=== PATIENT | female | born 2000 | race African-American/Black ===

== ENCOUNTER 2019-01-05 19:37 | Emergency (ER) | payer OTHER ==
[2019-01-05 20:09] VITALS: TEMP 98.2
[2019-01-05] MEDS ORDERED: SODIUM CHLORIDE 0.9% 500 ML 500 ML IV STA (20:32)
--- NOTE | 2019-01-05 20:56 | ED ---
Female Urogenital HPI - General Chief complaint: Vaginal Bleeding Stated complaint: Vaginal Bleeding- Time Seen by Provider: 01/05/19 20:31 Source: patient Mode of arrival: ambulatory Limitations: no limitations - History of Present Illness Initial comments: This patient is a 18-year-old woman who presents to be evaluated for vaginal bleeding and lower abdominal cramping. The patient states that she states the cramping is been going on for number of days but she didn't really pay any attention to it until about 3 days ago when she started having some small amount of vaginal bleeding. She states that approximately one week ago she had learned she was by taking a home test. Last previous area and was November 22 and was normal. Patient describes the cramping as mild, intermittent, she indicates the bilateral lower pelvic area. She has not noted worsening or relieving factors. MD Complaint: vaginal bleeding, pelvic pain Onset/Timin -: days(s) Location: LLQ, RLQ Radiation: non-radiating Severity: mild Quality: cramping Consistency: intermittent Improves with: none Worsens with: none Last Menstrual Period: 11/22/18 Patient : Yes Associated Symptoms: vaginal bleeding, abdominal pain - Related Data Previous Rx's Medication Instructions Recorded Amoxicillin 500 mg PO Q8H #21 capsule 01/06/19 Allergies Allergy/AdvReac Type Severity Reaction Status Date / Time No Known Allergies Allergy Verified 01/05/19 20:43 Review of Systems ROS Statement: Those systems with pertinent positive or pertinent negative responses have been documented in the HPI. ROS Other: All systems not noted in ROS Statement are negative. Constitutional: Denies: fever, chills Respiratory: Denies: cough, dyspnea Cardiovascular: Denies: chest pain, palpitations, edema Gastrointestinal: Reports: as per HPI, abdominal pain. Denies: nausea, vomiting, diarrhea, constipation Genitourinary: Reports: discharge (Mall amount bleeding). Denies: urgency, dysuria, frequency, hematuria Musculoskeletal: Denies: back pain Skin: Denies: rash Neurological: Denies: headache Hematological/Lymphatic: Denies: easy bleeding Past Medical History Past Medical History: No Reported History History of Any Multi-Drug Resistant Organisms: None Reported Past Surgical History: No Surgical Hx Reported Past Psychological History: No Psychological Hx Reported Smoking Status: Never smoker Past Alcohol Use History: None Reported Past Drug Use History: None Reported General Exam Limitations: no limitations General appearance: alert, in no apparent distress Head exam: Present: atraumatic, normocephalic Eye exam: Present: normal appearance. Absent: scleral icterus, conjunctival injection ENT exam: Present: normal oropharynx Respiratory exam: Present: normal lung sounds bilaterally. Absent: respiratory distress, wheezes, rales, rhonchi, stridor Cardiovascular Exam: Present: regular rate, normal rhythm, normal heart sounds. Absent: systolic murmur, diastolic murmur, rubs, gallop GI/Abdominal exam: Present: soft, normal bowel sounds. Absent: distended, tenderness, guarding, rebound, rigid, mass External exam: Present: normal external exam, other (RN Diana present) Speculum exam: Present: normal speculum exam, vaginal bleeding. Absent: erythema, vaginal discharge, cervical discharge, foreign body, tissue, laceration By manual exam: Present: normal by manual exam, uterine enlargement. Absent: cervical motion tenderness, adnexal tenderness, adnexal mass, uterine tenderness Extremities exam: Present: normal inspection, normal capillary refill. Absent: pedal edema, calf tenderness Back exam: Present: normal inspection. Absent: CVA tenderness (R), CVA tenderness (L) Neurological exam: Present: alert Skin exam: Present: warm, dry, intact, normal color. Absent: rash Course Vital Signs 01/05/19 20:05 Temperature 98.2 F Pulse Rate 105 H Respiratory 18 Rate Blood Pressure 136/85 O2 Sat by Pulse 100 Oximetry Medical Decision Making - Lab Data Result diagrams: 01/05/19 20:50 01/05/19 20:50 Lab Results 01/05/19 01/05/19 01/05/19 Range/Units 20:50 20:50 20:50 WBC 8.5 (4.0-11.0) k/uL RBC 5.22 (3.80-5.40) m/uL Hgb 14.4 (11.4-16.0) gm/dL Hct 45.5 (34.0-46.0) % MCV 87.1 (80.0-100.0) fL MCH 27.5 (25.0-35.0) pg MCHC 31.6 (31.0-37.0) g/dL RDW 13.5 (11.5-15.5) % Plt Count 297 (150-450) k/uL Neutrophils % 65 % Lymphocytes % 27 % Monocytes % 6 % Eosinophils % 1 % Basophils % 1 % Neutrophils # 5.5 (1.3-7.7) k/uL Lymphocytes # 2.3 (1.0-4.8) k/uL Monocytes # 0.5 (0-1.0) k/uL Eosinophils # 0.1 (0-0.7) k/uL Basophils # 0.1 (0-0.2) k/uL Sodium 141 (137-145) mmol/L Potassium 3.6 (3.5-5.1) mmol/L Chloride 102 (98-107) mmol/L Carbon Dioxide 24 (22-30) mmol/L Anion Gap 15 mmol/L BUN 10 (7-17) mg/dL Creatinine 0.67 (0.52-1.04) mg/dL Est GFR (CKD-EPI)AfAm >90 (>60 ml/min/1.73 sqM) Est GFR (CKD-EPI)NonAf >90 (>60 ml/min/1.73 sqM) Glucose 77 (74-99) mg/dL Calcium 10.1 (8.4-10.2) mg/dL HCG, Quant 2973.6 mIU/mL Urine Color Urine Appearance (Clear) Urine pH (5.0-8.0) Ur Specific [place] (1.001-1.035) Urine Protein (Negative) Urine Glucose (UA) (Negative) Urine Ketones (Negative) Urine Blood (Negative) Urine Nitrite (Negative) Urine Bilirubin (Negative) Urine Urobilinogen (<2.0) mg/dL Ur Leukocyte Esterase (Negative) Urine RBC (0-5) /hpf Urine WBC (0-5) /hpf Ur Squamous Epith Cells (0-4) /hpf Urine Bacteria (None) /hpf Urine Mucus (None) /hpf Trichomonas Ag (Rapid) (Negative) Blood Type A Positive Blood Type Recheck [facility] ONLY 01/05/19 01/05/19 Range/Units 22:05 23:00 WBC (4.0-11.0) k/uL RBC (3.80-5.40) m/uL Hgb (11.4-16.0) gm/dL Hct (34.0-46.0) % MCV (80.0-100.0) fL MCH (25.0-35.0) pg MCHC (31.0-37.0) g/dL RDW (11.5-15.5) % Plt Count (150-450) k/uL Neutrophils % % Lymphocytes % % Monocytes % % Eosinophils % % Basophils % % Neutrophils # (1.3-7.7) k/uL Lymphocytes # (1.0-4.8) k/uL Monocytes # (0-1.0) k/uL Eosinophils # (0-0.7) k/uL Basophils # (0-0.2) k/uL Sodium (137-145) mmol/L Potassium (3.5-5.1) mmol/L Chloride (98-107) mmol/L Carbon Dioxide (22-30) mmol/L Anion Gap mmol/L BUN (7-17) mg/dL Creatinine (0.52-1.04) mg/dL Est GFR (CKD-EPI)AfAm (>60 ml/min/1.73 sqM) Est GFR (CKD-EPI)NonAf (>60 ml/min/1.73 sqM) Glucose (74-99) mg/dL Calcium (8.4-10.2) mg/dL HCG, Quant mIU/mL Urine Color Yellow Urine Appearance Clear (Clear) Urine pH 6.5 (5.0-8.0) Ur Specific [place] 1.025 (1.001-1.035) Urine Protein 1+ H (Negative) Urine Glucose (UA) Negative (Negative) Urine Ketones Negative (Negative) Urine Blood Moderate H (Negative) Urine Nitrite Negative (Negative) Urine Bilirubin Negative (Negative) Urine Urobilinogen 3.0 (<2.0) mg/dL Ur Leukocyte Esterase Small H (Negative) Urine RBC 65 H (0-5) /hpf Urine WBC 19 H (0-5) /hpf Ur Squamous Epith Cells 5 H (0-4) /hpf Urine Bacteria Rare H (None) /hpf Urine Mucus Many H (None) /hpf Trichomonas Ag (Rapid) Negative (Negative) Blood Type Blood Type Recheck Disposition Clinical Impression: Threatened Disposition: HOME SELF-CARE Condition: Good Instructions (If sedation given, give patient instructions): Threatened Miscarriage (ED) Prescriptions: Amoxicillin 500 mg PO Q8H #21 capsule Is patient prescribed a controlled substance at d/c from ED?: No Referrals: Candido Carmona MD [Primary Care Provider] - 1-2 days Blossom Tinsley MD [STAFF PHYSICIAN] - 1-2 days
[2019-01-05 21:26] LABS: Basophils # (A) 0.1 k/uL (0-0.2); Basophils % (A) 1 %; Eosinophils # (A) 0.1 k/uL (0-0.7); Eosinophils % (A) 1 %; HCT 45.5 % (34.0-46.0); HGB 14.4 gm/dL (11.4-16.0); Lymphocytes # (A) 2.3 k/uL (1.0-4.8); Lymphocytes % (A) 27 %; MCH 27.5 pg (25.0-35.0); MCHC 31.6 g/dL (31.0-37.0); MCV 87.1 fL (80.0-100.0); Mean Platelet Volume 7.6; Monocytes # (A) 0.5 k/uL (0-1.0); Monocytes % (A) 6 %; Neutrophils # (A) 5.5 k/uL (1.3-7.7); Neutrophils % (A) 65 %; Platelet Count 297 k/uL (150-450); RBC 5.22 m/uL (3.80-5.40); RDW 13.5 % (11.5-15.5); WBC 8.5 k/uL (4.0-11.0)
[2019-01-05 21:36] LABS: African American GFR (CKD) >90 (>60 ml/min/1.73 sqM); Anion Gap 15 mmol/L; Blood Urea Nitrogen 10 mg/dL (7-17); Calcium 10.1 mg/dL (8.4-10.2); Carbon Dioxide 24 mmol/L (22-30); Chloride 102 mmol/L (98-107); Glucose 77 mg/dL (74-99); Potassium 3.6 mmol/L (3.5-5.1); Sodium 141 mmol/L (137-145)
[2019-01-05 21:52] LABS: HCG,Quantitative Serum 2973.6 mIU/mL
[2019-01-05 22:37] LABS: Appearance,Urine Clear (Clear); Bacteria,Urine Rare /hpf; Bilirubin,Urine Negative (Negative); Blood,Urine Moderate (Negative); Color,Urine Yellow; Glucose,Urine (UA) Negative (Negative); Ketones,Urine Negative (Negative); Leukocyte Esterase,Urine Small (Negative); Mucus,Urine Many /hpf; Nitrite,Urine Negative (Negative); PH, Urine 6.5 (5.0-8.0); Protein,Urine 1+ (Negative); RBC,Urine 65 /hpf (0-5); Specific Gravity,Urine 1.025 (1.001-1.035); Squamous Epithelial Cell,Urine 5 /hpf (0-4); WBC,Urine 19 /hpf (0-5)
--- NOTE | 2019-01-06 00:14 | US ---
EXAM: US First Trimester, Transabdominal US , Transvaginal CLINICAL HISTORY: ITS.REASON US Reason: Pain, bleeding TECHNIQUE: Real-time transabdominal and transvaginal obstetrical ultrasound of the maternal pelvis and a first trimester with image documentation. Transvaginal imaging was used for better evaluation of the fetus and adnexa. COMPARISON: No relevant prior studies available. FINDINGS: Gestation: Intrauterine gestational sac, relatively lower in the uterus, with pole measuring 6 weeks by crown-rump length. cardiac activity not visualized. Uterus/cervix: Uterus: 6.7 x 4.9 x 4.1 cm. Possible minimal fluid in cervix area. Ovaries: Right Ovary: 3.6 x 2.4 x 1.7 cm. Left Ovary: 3.9 x 2.7 x 2.6 cm. Free fluid: Trace pelvic free fluid. IMPRESSION: 1. Single intrauterine measuring 6 weeks. cardiac activity not visualized. Correlate with serial beta hCG/followup ultrasound as clinically indicated. 2. Trace pelvic free fluid.
[2019-01-06] MEDS ORDERED: Rhogam IMMUNE GLOBULIN 1,500 UNIT/1 ML IM ONE (00:29)
[2019-01-06 00:48] VITALS: BP 139/86; PULSE 99; RESP 16
== END 2019-01-06 01:10 | disposition home or self-care (01) ==
LOC: EC 19:37
DX: O20.0 Threatened abortion (principal); O99.89 Other specified diseases and conditions complicating pregnancy, childbirth and the puerperium; N85.2 Hypertrophy of uterus; Z3A.01 Less than 8 weeks gestation of pregnancy; Z53.8 Procedure and treatment not carried out for other reasons
CPT/HCPCS: 36415; 76801; 76817; 80048; 81001; 84702; 85025; 86900; 86901; 87808; 96360; 99284

== ENCOUNTER 2019-01-08 11:04 | Emergency (ER) | payer OTHER ==
[2019-01-08 11:11] VITALS: BP 130/89; PULSE 103; RESP 20; TEMP 98.6
--- NOTE | 2019-01-08 11:50 | ED ---
Female Urogenital HPI - General Chief complaint: Vaginal Bleeding Stated complaint: recheck 6wks preg, bleeding Time Seen by Provider: 01/08/19 11:13 Source: patient, RN notes reviewed Mode of arrival: ambulatory Limitations: no limitations - History of Present Illness Initial comments: Patient is a 18-year-old female currently 6 weeks with an LMP of 11/22/2018 who presents to the emergency department for vaginal bleeding. States this has been ongoing for about a week. States she has had cramping as well. States she thinks she is miscarrying. States she did pass some clots today as well as tissue. Denies any significant abdominal pain. States she did have an ultrasound that showed an intrauterine without a heart ra te.Patient has no other complaints at this time including shortness of breath, chest pain, abdominal pain, nausea or vomiting, headache, or visual changes. Last Menstrual Period: 11/22/18 - Related Data Home Medications Medication Instructions Recorded Confirmed No Known Home Medications 01/08/19 01/08/19 Allergies Allergy/AdvReac Type Severity Reaction Status Date / Time No Known Allergies Allergy Verified 01/08/19 11:27 Review of Systems ROS Statement: Those systems with pertinent positive or pertinent negative responses have been documented in the HPI. ROS Other: All systems not noted in ROS Statement are negative. Past Medical History Past Medical History: No Reported History History of Any Multi-Drug Resistant Organisms: None Reported Past Surgical History: No Surgical Hx Reported Past Psychological History: No Psychological Hx Reported Smoking Status: Never smoker Past Alcohol Use History: None Reported Past Drug Use History: None Reported General Exam Limitations: no limitations General appearance: alert, in no apparent distress Head exam: Present: atraumatic, normocephalic, normal inspection Eye exam: Present: normal appearance, PERRL, EOMI. Absent: scleral icterus, conjunctival injection, periorbital swelling ENT exam: Present: normal exam, mucous membranes moist Neck exam: Present: normal inspection, full ROM. Absent: tenderness, meningismus, lymphadenopathy Respiratory exam: Present: normal lung sounds bilaterally. Absent: respiratory distress, wheezes, rales, rhonchi, stridor Cardiovascular Exam: Present: regular rate, normal rhythm, normal heart sounds. Absent: systolic murmur, diastolic murmur, rubs, gallop, clicks GI/Abdominal exam: Present: soft, normal bowel sounds. Absent: distended, tenderness, guarding, rebound, rigid External exam: Present: normal external exam. Absent: erythema, swelling, lesions, lacerations, ecchymosis Speculum exam: Present: vaginal bleeding. Absent: normal speculum exam, erythema, vaginal discharge, cervical discharge, foreign body, tissue, laceration By manual exam: Present: normal by manual exam. Absent: cervical motion tenderness, adnexal tenderness, adnexal mass, uterine enlargement, uterine tenderness Neurological exam: Present: alert Psychiatric exam: Present: normal affect, normal mood Course Vital Signs 01/08/19 11:09 Temperature 98.6 F Pulse Rate 103 H Respiratory 20 Rate Blood Pressure 130/89 O2 Sat by Pulse 99 Oximetry Medical Decision Making - Medical Decision Making Patient is a 18-year-old female currently 6 weeks with her first with an LMP of 11/22/2018 who presents for vaginal bleeding. This has been ongoing for about a week. Mild cramping as well. Think she is miscarrying. Patient did have an ultrasound 3 days ago that showed an intrauterine without evident cardiac activity. Exam today revealed animal bleeding. Vitals are stable. CBC unremarkable. No acute hemorrhage. ECG is trending down from 3 days ago. HCG was initially 2973 and is now 1212. Patient likely miscarrying. At this time repeating ultrasound is not warranted. Discussed with Dr Trevino, at this time feel patient can follow up with primary care. However regimen and returning if she starts to have any abdominal pain fevers or any other worsening symptoms. - Lab Data Result diagrams: 01/08/19 11:57 01/08/19 11:57 Lab Results 01/08/19 01/08/19 01/08/19 Range/Units 11:57 11:57 11:57 WBC 11.4 H (4.0-11.0) k/uL RBC 4.52 (3.80-5.40) m/uL Hgb 13.2 (11.4-16.0) gm/dL Hct 39.1 (34.0-46.0) % MCV 86.3 (80.0-100.0) fL MCH 29.2 (25.0-35.0) pg MCHC 33.8 (31.0-37.0) g/dL RDW 14.8 (11.5-15.5) % Plt Count 252 (150-450) k/uL Neutrophils % 68 % Lymphocytes % 24 % Monocytes % 5 % Eosinophils % 2 % Basophils % 0 % Neutrophils # 7.7 (1.3-7.7) k/uL Lymphocytes # 2.8 (1.0-4.8) k/uL Monocytes # 0.5 (0-1.0) k/uL Eosinophils # 0.2 (0-0.7) k/uL Basophils # 0.0 (0-0.2) k/uL Sodium 139 (137-145) mmol/L Potassium 3.5 (3.5-5.1) mmol/L Chloride 107 (98-107) mmol/L Carbon Dioxide 21 L (22-30) mmol/L Anion Gap 11 mmol/L BUN 5 L (7-17) mg/dL Creatinine 0.57 (0.52-1.04) mg/dL Est GFR (CKD-EPI)AfAm >90 (>60 ml/min/1.73 sqM) Est GFR (CKD-EPI)NonAf >90 (>60 ml/min/1.73 sqM) Glucose 105 H (74-99) mg/dL Calcium 9.7 (8.4-10.2) mg/dL Total Bilirubin 0.4 (0.2-1.3) mg/dL AST 17 (14-36) U/L ALT 17 (9-52) U/L Alkaline Phosphatase 67 (38-126) U/L Total Protein 7.3 (6.3-8.2) g/dL Albumin 4.6 (3.5-5.0) g/dL HCG, Quant 1212.2 mIU/mL Urine Color Urine Appearance (Clear) Urine pH (5.0-8.0) Ur Specific [place] (1.001-1.035) Urine Protein (Negative) Urine Glucose (UA) (Negative) Urine Ketones (Negative) Urine Blood (Negative) Urine Nitrite (Negative) Urine Bilirubin (Negative) Urine Urobilinogen (<2.0) mg/dL Ur Leukocyte Esterase (Negative) Urine RBC (0-5) /hpf Urine WBC (0-5) /hpf Ur Squamous Epith Cells (0-4) /hpf Urine Mucus (None) /hpf Blood Type A Positive Blood Type Recheck No 01/08/19 Range/Units 11:57 WBC (4.0-11.0) k/uL RBC (3.80-5.40) m/uL Hgb (11.4-16.0) gm/dL Hct (34.0-46.0) % MCV (80.0-100.0) fL MCH (25.0-35.0) pg MCHC (31.0-37.0) g/dL RDW (11.5-15.5) % Plt Count (150-450) k/uL Neutrophils % % Lymphocytes % % Monocytes % % Eosinophils % % Basophils % % Neutrophils # (1.3-7.7) k/uL Lymphocytes # (1.0-4.8) k/uL Monocytes # (0-1.0) k/uL Eosinophils # (0-0.7) k/uL Basophils # (0-0.2) k/uL Sodium (137-145) mmol/L Potassium (3.5-5.1) mmol/L Chloride (98-107) mmol/L Carbon Dioxide (22-30) mmol/L Anion Gap mmol/L BUN (7-17) mg/dL Creatinine (0.52-1.04) mg/dL Est GFR (CKD-EPI)AfAm (>60 ml/min/1.73 sqM) Est GFR (CKD-EPI)NonAf (>60 ml/min/1.73 sqM) Glucose (74-99) mg/dL Calcium (8.4-10.2) mg/dL Total Bilirubin (0.2-1.3) mg/dL AST (14-36) U/L ALT (9-52) U/L Alkaline Phosphatase (38-126) U/L Total Protein (6.3-8.2) g/dL Albumin (3.5-5.0) g/dL HCG, Quant mIU/mL Urine Color Yellow Urine Appearance Clear (Clear) Urine pH 6.0 (5.0-8.0) Ur Specific [place] 1.021 (1.001-1.035) Urine Protein Trace H (Negative) Urine Glucose (UA) Negative (Negative) Urine Ketones Negative (Negative) Urine Blood Large H (Negative) Urine Nitrite Negative (Negative) Urine Bilirubin Negative (Negative) Urine Urobilinogen <2.0 (<2.0) mg/dL Ur Leukocyte Esterase Moderate H (Negative) Urine RBC 172 H (0-5) /hpf Urine WBC 6 H (0-5) /hpf Ur Squamous Epith Cells 2 (0-4) /hpf Urine Mucus Moderate H (None) /hpf Blood Type Blood Type Recheck Disposition Clinical Impression: Threatened Disposition: HOME SELF-CARE Condition: Good Instructions (If sedation given, give patient instructions): Miscarriage (ED) Additional Instructions: Please follow up with primary care in 1-2 days. If you have any worsening symptoms such as abdominal pain or fevers return to the emergency department. Is patient prescribed a controlled substance at d/c from ED?: No Referrals: Candido Carmona MD [Primary Care Provider] - 1-2 days Time of Disposition: 13:03
[2019-01-08 12:22] LABS: ALT 17 U/L (9-52); AST 17 U/L (14-36); African American GFR (CKD) >90 (>60 ml/min/1.73 sqM); Albumin 4.6 g/dL (3.5-5.0); Alkaline Phosphatase 67 U/L (38-126); Anion Gap 11 mmol/L; Blood Urea Nitrogen 5 mg/dL (7-17); Calcium 9.7 mg/dL (8.4-10.2); Carbon Dioxide 21 mmol/L (22-30); Chloride 107 mmol/L (98-107); Glucose 105 mg/dL (74-99); Potassium 3.5 mmol/L (3.5-5.1); Sodium 139 mmol/L (137-145); Total Bilirubin 0.4 mg/dL (0.2-1.3); Total Protein 7.3 g/dL (6.3-8.2)
[2019-01-08 12:29] LABS: Appearance,Urine Clear (Clear); Basophils % (A) 0 %; Bilirubin,Urine Negative (Negative); Blood,Urine Large (Negative); Color,Urine Yellow; Eosinophils # (A) 0.2 k/uL (0-0.7); Eosinophils % (A) 2 %; Glucose,Urine (UA) Negative (Negative); HCT 39.1 % (34.0-46.0); HGB 13.2 gm/dL (11.4-16.0); Ketones,Urine Negative (Negative); Leukocyte Esterase,Urine Moderate (Negative); Lymphocytes # (A) 2.8 k/uL (1.0-4.8); Lymphocytes % (A) 24 %; MCH 29.2 pg (25.0-35.0); MCHC 33.8 g/dL (31.0-37.0); MCV 86.3 fL (80.0-100.0); Mean Platelet Volume 8.2; Monocytes # (A) 0.5 k/uL (0-1.0); Monocytes % (A) 5 %; Mucus,Urine Moderate /hpf; Neutrophils # (A) 7.7 k/uL (1.3-7.7); Neutrophils % (A) 68 %; Nitrite,Urine Negative (Negative); Platelet Count 252 k/uL (150-450); Protein,Urine Trace (Negative); RBC 4.52 m/uL (3.80-5.40); RBC,Urine 172 /hpf (0-5); RDW 14.8 % (11.5-15.5); Specific Gravity,Urine 1.021 (1.001-1.035); Squamous Epithelial Cell,Urine 2 /hpf (0-4); Urobilinogen,Urine <2.0 mg/dL (<2.0); WBC 11.4 k/uL (4.0-11.0); WBC,Urine 6 /hpf (0-5)
[2019-01-08 12:38] LABS: HCG,Quantitative Serum 1212.2 mIU/mL
== END 2019-01-08 13:11 | disposition home or self-care (01) ==
LOC: EC 11:04
DX: O20.0 Threatened abortion (principal); Z3A.01 Less than 8 weeks gestation of pregnancy
CPT/HCPCS: 36415; 80053; 81001; 84702; 85025; 86900; 86901; 99284

== ENCOUNTER 2021-06-27 11:54 | Outpatient (CLI) | payer OTHER ==
[2021-06-27 12:22] VITALS: BP 134/83; PULSE 85; RESP 18; TEMP 97.4
[2021-06-27 12:52] LABS: Amorphous Sediment,Urine Rare /hpf; Appearance,Urine Cloudy (Clear); Bilirubin,Urine Negative (Negative); Blood,Urine Negative (Negative); Color,Urine Yellow; Glucose,Urine (UA) Negative (Negative); Ketones,Urine Negative (Negative); Leukocyte Esterase,Urine Large (Negative); Mucus,Urine Many /hpf; Nitrite,Urine Negative (Negative); PH, Urine 6.5 (5.0-8.0); Protein,Urine 1+ (Negative); Squamous Epithelial Cell,Urine 43 /hpf (0-4); Urobilinogen,Urine <2.0 mg/dL (<2.0); WBC,Urine 53 /hpf (0-5)
[2021-06-27 12:56] LABS: ALT 9 U/L (4-34); AST 22 U/L (14-36); African American GFR (CKD) >90 (>60 ml/min/1.73 sqM); Blood Urea Nitrogen 4 mg/dL (7-17); LDH 429 U/L (313-618); Non-African American GFR(CKD) >90 (>60 ml/min/1.73 sqM); Uric Acid 3.3 mg/dL (3.7-7.4)
[2021-06-27 12:58] LABS: Creatinine,Urine Random 201.6 mg/dL; Protein/Creatinine Ratio,Urine 0.104
[2021-06-27 13:04] LABS: Basophils % (A) 0 %; Eosinophils % (A) 1 %; HCT 34.7 % (34.0-46.0); Hypochromasia Moderate; Lymphocytes # (A) 1.6 k/uL (1.0-4.8); Lymphocytes % (A) 21 %; MCH 26.6 pg (25.0-35.0); MCHC 31.6 g/dL (31.0-37.0); MCV 84.3 fL (80.0-100.0); Mean Platelet Volume 9.3; Monocytes # (A) 0.3 k/uL (0-1.0); Monocytes % (A) 3 %; Neutrophils # (A) 5.7 k/uL (1.3-7.7); Neutrophils % (A) 73 %; Platelet Count 216 k/uL (150-450); RBC 4.12 m/uL (3.80-5.40); WBC 7.9 k/uL (3.8-10.6)
--- NOTE | 2021-06-28 07:43 | P.MSEPDOC ---
Presenting Problems - Arrival Data Date of Arrival on Unit: 06/27/21 Time of Arrival on Unit: 11:54 Mode of Transport: Ambulatory - Complaint OB-Reason for Admission/Chief Complaint: PIH Comment: with script for work up from office Medical History - Information : 3 Para: 0 Term: 0 : 0 Abortions: Spontaneous or Elective: 0 Number of Living Children: 0 - Gestational Age Gestational Age by ZARA (wks/days): 32 Weeks and 4 Days Review of Systems - Review of Systems Constitutional: No problems Breast: No problems ENT: No problems Cardiovascular: No problems Respiratory: No problems Gastrointestinal: No problems Genitourinary: No problems Musculoskeletal: No problems Neurological: No problems Skin: No problems Vital Signs - Temperature Temperature: 97.4 F Temperature Source: Temporal Artery Scan - Pulse Right Brachial Pulse Rate: 85 Pulse Assessment Method: Automatic Cuff - Respirations Respiratory Rate: 18 Oxygen Delivery Method: Room Air O2 Sat by Pulse Oximetry: 99 - Blood Pressure Right Arm Sitting Blood Pressure: 134/83 Blood Pressure Mean: 100 Blood Pressure Source: Automatic Cuff Medical Screen Scoring - Assessment - Baby A Baseline FHR: 134 Heart Rate - NICHD Category: Category I (Normal) NST: Reactive Physician Notification - Physician Notified Physician Notified Date: 06/27/21 Physician Notified Time: 13:10 Physician: Sherly Lazo Order Received: Yes - Notification Comment Comment: Discharge with instruction Maternal Triage Index - Scheduled/Requesting Priority 5 Scheduled/Requesting Priority 5: Yes Criteria Met for Priority 5: pt blood pressures high in office, not high in triage. Arrived with script for PIH work up. Pt has no complaints. Disposition - Disposition OB Disposition: Triage, Discharge to home Discharge Date: 06/27/21 Discharge Time: 13:25 I agree with the RN Medical Screening Exam: Yes Case reviewed; plan agreed upon as documented in EMR&OBIX.: Yes Diagnosis: GESTATIONAL HTN W/O SIGNIFICANT PROTEINURIA, THIRD TRIMESTER
== END 2021-06-27 13:25 | disposition home or self-care (01) ==
LOC: FBPOP 11:54
PROVIDERS: ATTEND Obstetrics & Gynecology
DX: O13.3 Gestational [pregnancy-induced] hypertension without significant proteinuria, third trimester (principal); Z3A.32 32 weeks gestation of pregnancy
CPT/HCPCS: 59025; 81001; 82565; 82570; 83615; 84156; 84450; 84460; 84520; 84550; 85025

== ENCOUNTER 2021-07-14 14:35 | Outpatient (CLI) | payer OTHER ==
[2021-07-14 16:10] LABS: ALT 12 U/L (4-34); AST 24 U/L (14-36); African American GFR (CKD) >90 (>60 ml/min/1.73 sqM); Blood Urea Nitrogen 5 mg/dL (7-17); LDH 371 U/L (313-618); Non-African American GFR(CKD) >90 (>60 ml/min/1.73 sqM); Uric Acid 3.8 mg/dL (3.7-7.4)
[2021-07-14 16:15] LABS: Basophils % (A) 0 %; Eosinophils % (A) 0 %; HCT 32.2 % (34.0-46.0); HGB 9.9 gm/dL (11.4-16.0); Hypochromasia Marked; Lymphocytes # (A) 1.6 k/uL (1.0-4.8); Lymphocytes % (A) 16 %; MCH 25.6 pg (25.0-35.0); MCHC 30.6 g/dL (31.0-37.0); MCV 83.6 fL (80.0-100.0); Mean Platelet Volume 9.3; Monocytes # (A) 0.4 k/uL (0-1.0); Monocytes % (A) 4 %; Neutrophils # (A) 7.7 k/uL (1.3-7.7); Neutrophils % (A) 78 %; Platelet Count 250 k/uL (150-450); RBC 3.85 m/uL (3.80-5.40); RDW 14.6 % (11.5-15.5); WBC 9.9 k/uL (3.8-10.6)
[2021-07-14 16:27] LABS: Creatinine,Urine Random 161.8 mg/dL; Protein/Creatinine Ratio,Urine 0.062
[2021-07-14 16:28] LABS: Appearance,Urine Cloudy (Clear); Bacteria,Urine Rare /hpf; Bilirubin,Urine Negative (Negative); Blood,Urine Negative (Negative); Color,Urine Yellow; Glucose,Urine (UA) Negative (Negative); Ketones,Urine Negative (Negative); Leukocyte Esterase,Urine Large (Negative); Mucus,Urine Many /hpf; Nitrite,Urine Negative (Negative); PH, Urine 6.5 (5.0-8.0); Protein,Urine Trace (Negative); RBC,Urine 3 /hpf (0-5); Specific Gravity,Urine 1.021 (1.001-1.035); Squamous Epithelial Cell,Urine 25 /hpf (0-4); Urobilinogen,Urine <2.0 mg/dL (<2.0); WBC,Urine 6 /hpf (0-5)
--- NOTE | 2021-07-14 17:21 | P.MSEPDOC ---
Presenting Problems - Arrival Data Date of Arrival on Unit: 07/14/21 Time of Arrival on Unit: 15:45 Mode of Transport: Ambulatory I agree with the RN Medical Screening Exam: Yes Case reviewed; plan agreed upon as documented in EMR&OBIX.: Yes Diagnosis: GESTATIONAL HTN W/O SIGNIFICANT PROTEINURIA, THIRD TRIMESTER (This patient presents to triage from the office for evaluation of hypertension. Patient presented to the office for nonstress test and blood pressure check. She is being followed for gestational hypertension by Dr. Lazo. Blood pressure in office 128/102. Blood pressures here are normal with the exception of 1 elevated blood, however this is not persistent or reproducible. I did repeat her preeclampsia labs which were normal. Protein to creatinine ratio was normal. heart tones are category 1. I impression this patient has gestational hypertension without evidence of preeclampsia at this time. I discussed the plan with her and her mother and she will go home follow up with Dr. Lazo on Saturday as scheduled. Most likely will need to be delivered at 37 weeks secondary to gestational hypertension, earlier if develops preeclampsia with severe features. At this point there is no evidence of maternal compromise.)
[2021-07-14 17:56] VITALS: BP 132/82; PULSE 108; RESP 16; TEMP 97.6
== END 2021-07-14 17:15 | disposition home or self-care (01) ==
LOC: FBPOP 14:35
PROVIDERS: ATTEND Obstetrics & Gynecology
DX: O13.3 Gestational [pregnancy-induced] hypertension without significant proteinuria, third trimester (principal); Z3A.35 35 weeks gestation of pregnancy
CPT/HCPCS: 59025; 81001; 82565; 82570; 83615; 84156; 84450; 84460; 84520; 84550; 85025

== ENCOUNTER 2021-08-01 06:00 | Inpatient (IN) | payer OTHER ==
--- NOTE | 2021-07-31 17:57 | P.HPOB ---
History of Present Illness H&P Date: 07/31/21 Chief Complaint: Gestational hypertension This is a 21 y.o. female, 3, para 0, with an estimated date of confinement of 08/18/2021, estimated gestational age of 37-4/7 weeks, who presents for induction of labor due to gestational hypertension. She has not had any blood pressures in the severe category and denies any headaches, blurred vision or epigastric pain. Labs have been normal in triage. She is feeling occasional contractions and pressure. labs: Hepatitis B surface antigen-neg RPR-NR HIV- NR Rubella-immune Blood type-A+ Antibody screen-neg Hemoglobin-13.8 Glucose-85 1 hr. GTT-114 GBS-positive OB Hx: . History of 1 miscarriage and 1 termination of . Correspondence Representative Hx: No hx of STDs Social Hx: Single. Unemployed. Review of Systems Constitutional: Denies chills, Denies fever Eyes: denies blurred vision, denies pain Ears, nose, mouth and throat: Denies headache, Denies sore throat Cardiovascular: Denies chest pain, Denies shortness of breath Respiratory: Denies cough Gastrointestinal: Reports abdominal pain (irregular contractions) Genitourinary: Reports pelvic pain, Reports Musculoskeletal: Reports low back pain, Denies myalgias Integumentary: Denies pruritus, Denies rash Neurological: Denies numbness, Denies weakness Past Medical History Past Medical History: No Reported History History of Any Multi-Drug Resistant Organisms: None Reported Past Surgical History: No Surgical Hx Reported Past Anesthesia/Blood Transfusion Reactions: No Reported Reaction Past Psychological History: No Psychological Hx Reported Smoking Status: Former smoker Past Alcohol Use History: None Reported Past Drug Use History: None Reported - Past Family History Mother History Unknown: Yes Medications and Allergies Home Medications Medication Instructions Recorded Confirmed Type Pnv,Calcium 72/Iron/Folic Acid 1 tab PO DAILY 07/14/21 07/14/21 History [ Plus Tablet] Allergies Allergy/AdvReac Type Severity Reaction Status Date / Time No Known Allergies Allergy Verified 07/14/21 14:58 Exam Osteopathic Statement: *. No significant issues noted on an osteopathic structural exam other than those noted in the History and Physical/Consult. HEENT: within normal limits Heart: regular rate and rhythm Lungs: clear to auscultation bilaterally Abdomen: , non-tender Cervix: 1 cm/60%/-2 heart tones: 140's by doppler Extremities: neg. Aabd's Assessment and Plan (1) 37 weeks gestation of Status: Acute Code(s): Z3A.37 - 37 WEEKS GESTATION OF SNOMED Code(s): 67942725 (2) Gestational hypertension Status: Acute Code(s): O13.9 - GESTATIONAL HTN W/O SIGNIFICANT PROTEINURIA, UNSP TRIMESTER SNOMED Code(s): 49846379 (3) Group B Streptococcus carrier, +RV culture, currently Status: Acute Code(s): O99.820 - STREPTOCOCCUS B CARRIER STATE COMPLICATING SNOMED Code(s): 1806350149045 Plan: Proceed with oxytocin induction of labor. Expectant management. Antibiotic prophylaxis for GBS. Epidural anesthesia if desired.
[2021-08-01] MEDS ORDERED: OXYTOCIN 10 UNIT/ML 1 ML VIAL IM PRN (06:11)
[2021-08-01] MEDS ORDERED: TERBUTALINE 1 MG/ML VIAL SQ PRN (06:11)
[2021-08-01] MEDS ORDERED: CARBOPROST TROMETHAMINE 250 MCG/ML 1 ML AMP IM PRN (06:11)
[2021-08-01] MEDS ORDERED: OXYTOCIN 30 UNITS/500 ML NS 30 UNIT in SALINE 1 500ML.BAG IV SCH ×2 (06:11→19:00)
[2021-08-01] MEDS ORDERED: METHYLERGONOVINE 0.2 MG/ML 1 ML AMP IM PRN (06:11)
[2021-08-01] MEDS ORDERED: AMPICILLIN 2,000 MG in SODIUM CHLORIDE 0.9% 100 ML IVPB STA (06:11)
[2021-08-01] MEDS ORDERED: LIDOCAINE 1% (PF) 10 MG/ML (30 ML SDV) SQ PRN (06:11)
[2021-08-01] MEDS ORDERED: LIDOCAINE 1% (10MG/ML) FOR IV START INTRADERMA PRN (06:11)
[2021-08-01] MEDS: LACTATED RINGERS 1,000 ML IV SCH ×2 (06:27→10:38)
[2021-08-01 06:59] LABS: ALT 11 U/L (4-34); AST 23 U/L (14-36); African American GFR (CKD) >90 (>60 ml/min/1.73 sqM); Blood Urea Nitrogen 8 mg/dL (7-17); LDH 444 U/L (313-618); Non-African American GFR(CKD) >90 (>60 ml/min/1.73 sqM); Uric Acid 3.9 mg/dL (3.7-7.4)
[2021-08-01 07:05] LABS: Basophils % (A) 0 %; Eosinophils # (A) 0.1 k/uL (0-0.7); Eosinophils % (A) 1 %; HCT 30.4 % (34.0-46.0); HGB 9.5 gm/dL (11.4-16.0); Hypochromasia Marked; Lymphocytes # (A) 2.8 k/uL (1.0-4.8); Lymphocytes % (A) 24 %; MCHC 31.4 g/dL (31.0-37.0); MCV 82.6 fL (80.0-100.0); Mean Platelet Volume 9.2; Monocytes # (A) 0.6 k/uL (0-1.0); Monocytes % (A) 5 %; Neutrophils % (A) 68 %; Platelet Count 264 k/uL (150-450); Poikilocytosis Slight; RBC 3.68 m/uL (3.80-5.40); RDW 15.2 % (11.5-15.5); WBC 11.8 k/uL (3.8-10.6)
[2021-08-01 07:10] LABS: INR 0.8 (<1.2); Prothrombin Time 9.5 sec (9.0-12.0)
[2021-08-01 07:16] LABS: Partial Thromboplastin Time 19.4 sec (22.0-30.0)
[2021-08-01 09:06] LABS: Glucose,Urine (UA) Negative (Negative); Ketones,Urine Negative (Negative); Protein,Urine Trace (Negative)
[2021-08-01 09:23] LABS: Creatinine,Urine Random 131.2 mg/dL; Protein/Creatinine Ratio,Urine 0.091
[2021-08-01] MEDS ORDERED: ROPIVACAINE 100 MG, fentaNYL (PF). 200 MCG in SODIUM CHLORIDE 0.9% 76 ML EPIDURAL ONE (10:26)
[2021-08-01] MEDS: AMPICILLIN 1,000 MG in SODIUM CHLORIDE 0.9% 50 ML IVPB SCH ×3 (10:31→20:21)
[2021-08-01] MEDS ORDERED: diphenhydrAMINE 50 MG/ML 1 ML VIAL IVP PRN ×3 (11:45→18:52)
[2021-08-01] MEDS ORDERED: ZOLPIDEM 5 MG TAB PO PRN (18:52)
[2021-08-01] MEDS ORDERED: HYDROCORTISONE 2.5% RECTAL CREAM 30 GM TUBE RECTAL PRN (18:52)
[2021-08-01] MEDS ORDERED: LANOLIN CREAM 5 GM TUBE TOPICAL PRN (18:52)
[2021-08-01] MEDS ORDERED: diphenhydrAMINE 25 MG CAP PO PRN (18:52)
[2021-08-01] MEDS ORDERED: BENZOCAINE/MENTHOL SPRAY 1 GM/SPRAY AEROSOL TOPICAL PRN (18:52)
[2021-08-01] MEDS ORDERED: diphenhydrAMINE 50 MG CAP PO PRN (18:52)
[2021-08-01] MEDS ORDERED: SIMETHICONE 80 MG CHEWABLE PO PRN (18:52)
--- NOTE | 2021-08-01 18:53 | P.PROBDLV ---
Vaginal Delivery Note - . Vaginal Delivery Note: The patient progressed to complete dilation after oxytocin induction of labor and artificial rupture membranes with clear fluid noted. She did receive ampicillin while in labor due to positive group B streptococcus. She did receive epidural anesthesia. Once reaching complete dilation, she began pushing. 's head came to a crown. With one further push, the 's head delivered across the perineum followed by the anterior shoulder and then the remainder of the . Nose and mouth were bulb suctioned and was placed on mother's abdomen. The cord was allowed to finish pulsating and then the cord was clamped and cut. was then allowed to monteiro with mother with skin to skin. A viable female was noted with scores of 9 at 1 minute and 9 at 5 minutes and infant weight of 5 lbs. 11 oz. Placenta delivered shortly thereafter, intact, with a three-vessel cord. Uterus contracted fairly well after oxytocin was given and uterine massage was carried out. Inspection of the perineum revealed a left periurethral laceration and a right periurethral abrasion. The left side was anesthetized with 1% lidocaine and then sutured with 3-0 Vicryl suture in a running locked fashion. Her bladder was also drained with a catheter and then a gloved hand was placed within the uterine cavity and some blood clot was removed. Good hemostasis was noted after this. And uterus was firm. Estimated blood loss is approximately 150 mL's. Mother and infant are in stable condition.
[2021-08-01] MEDS: IBUPROFEN 600 MG TAB PO PRN (19:08)
[2021-08-01] MEDS: SENNOSIDES-DOCUSATE SODIUM 1 EACH TAB PO SCH (21:46)
[2021-08-01] MEDS: ACETAMINOPHEN TAB 325 MG TAB PO PRN (23:11)
[2021-08-02 03:34] VITALS: RESP 16
[2021-08-02] MEDS: IBUPROFEN 600 MG TAB PO PRN (04:45)
[2021-08-02 07:13] LABS: Basophils % (A) 0 %; Eosinophils # (A) 0.1 k/uL (0-0.7); Eosinophils % (A) 1 %; HCT 30.9 % (34.0-46.0); HGB 9.4 gm/dL (11.4-16.0); Hypochromasia Marked; Lymphocytes # (A) 2.2 k/uL (1.0-4.8); Lymphocytes % (A) 16 %; MCH 24.8 pg (25.0-35.0); MCHC 30.5 g/dL (31.0-37.0); MCV 81.3 fL (80.0-100.0); Mean Platelet Volume 10.5; Monocytes # (A) 0.5 k/uL (0-1.0); Monocytes % (A) 3 %; Neutrophils % (A) 79 %; Platelet Count 213 k/uL (150-450); Poikilocytosis Slight; RDW 15.4 % (11.5-15.5)
[2021-08-02] MEDS: ACETAMINOPHEN TAB 325 MG TAB PO PRN (08:24)
[2021-08-02] MEDS: SENNOSIDES-DOCUSATE SODIUM 1 EACH TAB PO SCH (08:24)
--- NOTE | 2021-08-02 09:06 | P.DS ---
Providers Date of admission: 08/01/21 06:00 Expected date of discharge: 08/02/21 Attending physician: Sherly Lazo Primary care physician: Stated None - Discharge Diagnosis(es) (1) 37 weeks gestation of Current Visit: No Status: Acute (2) Gestational hypertension Current Visit: No Status: Acute (3) Group B Streptococcus carrier, +RV culture, currently Current Visit: No Status: Acute Hospital Course: This is a 21-year-old female 3 para 0 at 37-4/7 weeks who presented for induction of labor secondary to gestational hypertension. She underwent oxytocin induction of labor and delivered vaginally a viable female on 08/01/2021 with scores of 9 at 1 minute and 9 at 5 minutes and infant weight of 5 lbs. 11 oz. Her course has been uncomplicated. Her blood pressures have normalized. Pain is well-controlled. Lochia has been minimal. She is bottle feeding. Vital signs are stable. Abdomen is soft with fundus firm and nontender. Extremities show negative Homans. No swelling is noted. Impression is status post vaginal delivery day #1. Plan is to discharge home later today. Routine instructions are given. She is advised to follow up in the office in approximately one week for a blood pressure check and in 6 weeks for a check. She is advised to call the office if she has any further questions or concerns prior to her appointment time. She will be given a prescription for ibuprofen. Procedures: Oxytocin induction of labor Spontaneous vaginal delivery of a viable female infant on 08/01/2021 Patient Condition at Discharge: Stable Plan - Discharge Summary New Discharge Prescriptions: New Ibuprofen [Motrin] 600 mg PO Q6HR PRN #60 tab PRN Reason: Mild Pain (Scale 1 To 3) Discharge Medication List Ibuprofen [Motrin] 600 mg PO Q6HR PRN #60 tab 08/02/21 [Rx] Follow up Appointment(s)/Referral(s): Sherly Lazo DO [Doctor of Osteopathic Medicine] - 09/11/21 3:30 pm (Blood pressure check in 1 week) Activity/Diet/Wound Care/Special Instructions: Instructions 1. Do not begin any exercise program for 3 weeks. 2. Do not resume sexual relations for 3 weeks or longer if uncomfortable. 3. You may take tub baths or showers at any time. 4. You may use tampons if desired after 3 weeks. 5. Keep the area of episiotomy (stitches) clean and dry. 6. If you are not nursing, wear a good fitting, supportive bra during the day and limit fluid intake for at least 1 week to prevent breast engorgement. 7. Call the office, [phone], within the next week to make appointment for your 6 week checkup if it has not already been made. 8. Report any of the following occurrences to the doctor promptly: a. Heavy, excessive bleeding b. Chills, fever c. Burning or frequency of urination d. Pain or redness and breasts if nursing e. Increasing pain or swelling in episiotomy (stitches). In addition to the above instructions, the following additional should be followed: 1. No heavy lifting or straining (exercising) until after 6 week checkup. 2. Keep abdominal incision clean and dry: You may wear a dressing if more comfortable. 3. Make office appointment for 10 days after going home or as instructed by her doctor. Discharge Disposition: HOME SELF-CARE
[2021-08-02 16:02] VITALS: BP 133/82; PULSE 77; TEMP 98.2
== END 2021-08-02 20:00 | disposition home or self-care (01) | DRG 807 ==
LOC: 4FBP 06:00
PROVIDERS: ADMIT Obstetrics & Gynecology; ATTEND Obstetrics & Gynecology
PROC: 10E0XZZ Delivery of Products of Conception, External Approach (ICD-10-PCS; principal; 2021-08-01)
PROC: 3E033VJ Introduction of Other Hormone into Peripheral Vein, Percutaneous Approach (ICD-10-PCS; 2021-08-01)
PROC: 10907ZC Drainage of Amniotic Fluid, Therapeutic from Products of Conception, Via Natural or Artificial Opening (ICD-10-PCS; 2021-08-01)
PROC: 0UQMXZZ Repair Vulva, External Approach (ICD-10-PCS; 2021-08-01)
DX: O13.4 Gestational [pregnancy-induced] hypertension without significant proteinuria, complicating childbirth (principal); Z37.0 Single live birth; O99.824 Streptococcus B carrier state complicating childbirth; O71.82 Other specified trauma to perineum and vulva; Z3A.37 37 weeks gestation of pregnancy; Z87.891 Personal history of nicotine dependence; Z87.59 Personal history of other complications of pregnancy, childbirth and the puerperium
CPT/HCPCS: 81003; 82565; 82570; 83615; 84156; 84450; 84460; 84520; 84550; 85025; 85384; 85610; 85730; 86850; 86900; 86901

== ENCOUNTER 2021-12-19 03:00 | Emergency (ER) | payer OTHER ==
[2021-12-19 03:04] VITALS: BP 144/78; PULSE 63; RESP 18; TEMP 98.2
[2021-12-19] MEDS ORDERED: HYDROcodone/APAP 5-325MG 1 EACH TAB PO STA (03:12)
[2021-12-19] MEDS ORDERED: PENICILLIN V POTASSIUM 250 MG TAB PO STA (03:12)
[2021-12-19] MEDS ORDERED: PENICILLIN VK 500MG STARTER 4 TAB BTL PO STA (03:13)
[2021-12-19] MEDS ORDERED: IBUPROFEN 600 MG STARTER PACK 4 TAB BTL PO STA (03:13)
--- NOTE | 2021-12-19 03:15 | ED ---
ENT HPI - General Chief complaint: Dental/Oral Stated complaint: Dental Pain Time Seen by Provider: 12/19/21 03:07 Source: patient Mode of arrival: ambulatory Limitations: no limitations - History of Present Illness Initial comments: This is a pleasant 21-year-old female who presents to emergency department complaining of right upper dental pain. Patient states that this started tonight when she was sleeping. She is describing sharp pain. Patient states she does have a cavity in a tooth and believes her nerve is exposed. Patient denies any other symptomology. No difficulty swallowing. No sore throat. No chance of . No headache, no fever or chills, no changes in vision or hearing, no sore throat or difficulty with speech, no neck pain, no chest pain or shortness of breath, no abdominal pain, no nausea or vomiting, no changes in urination or bowel movements, no numbness or tingling, no extremity pain, no skin rashes or lesions. Past medical, surgical, social, and family history reviewed. MD complaint: tooth pain - Related Data Previous Rx's Medication Instructions Recorded Ibuprofen [Motrin] 600 mg PO Q6HR PRN #60 tab 08/02/21 Acetaminophen Tab [Tylenol Tab] 500 mg PO Q6H PRN #24 tablet 12/19/21 Ibuprofen [Motrin] 600 mg PO Q8HR PRN #30 tab 12/19/21 Penicillin V Potassium [Pen Vee K] 500 mg PO QID #28 tablet 12/19/21 Allergies Allergy/AdvReac Type Severity Reaction Status Date / Time No Known Allergies Allergy Verified 12/19/21 03:04 Review of Systems ROS Statement: Those systems with pertinent positive or pertinent negative responses have been documented in the HPI. ROS Other: All systems not noted in ROS Statement are negative. Past Medical History Past Medical History: No Reported History Additional Past Medical History / Comment(s): GHTN/PIH History of Any Multi-Drug Resistant Organisms: None Reported Past Surgical History: No Surgical Hx Reported Additional Past Surgical History / Comment(s): oral surgery, no anesth complications Past Anesthesia/Blood Transfusion Reactions: No Reported Reaction Past Psychological History: No Psychological Hx Reported Smoking Status: Former smoker Past Alcohol Use History: None Reported Past Drug Use History: None Reported - Past Family History Mother History Unknown: Yes Family Medical History: No Reported History General Exam - General Exam Comments Initial Comments: Nontoxic appearing female in no significant distress. Vital signs reviewed. Limitations: no limitations General appearance: in distress Head exam: Present: atraumatic, normocephalic, normal inspection Eye exam: Present: normal appearance, EOMI. Absent: scleral icterus, conjunctival injection ENT exam: Present: normal exam, normal oropharynx, mucous membranes moist, TM's normal bilaterally, normal external ear exam. Absent: mucous membranes dry Expanded Mouth exam: Present: normal external inspection. Absent: drooling, trismus, muffled voice, tongue normal, tongue elevation, laceration Teeth exam: Present: dental caries (Patient has a significant dental care to tooth #4 with out definitive evidence of surrounding dental infection or abscess. No evidence of dental trauma), dental tenderness # (4). Absent: gingival enlargement Throat exam: normal inspection. negative: tonsillar erythema, tonsillomegaly, tonsillar exudate, R peritonsillar mass, L peritonsillar mass Neck exam: Present: normal inspection, full ROM. Absent: tenderness, meningismus, lymphadenopathy Respiratory exam: Present: normal lung sounds bilaterally. Absent: respiratory distress, wheezes, rales, rhonchi, stridor, chest wall tenderness, accessory muscle use Cardiovascular Exam: Present: regular rate, normal rhythm, normal heart sounds. Absent: systolic murmur, diastolic murmur, rubs, gallop, clicks GI/Abdominal exam: Present: soft. Absent: tenderness Extremities exam: Present: normal inspection, full ROM, normal capillary refill. Absent: tenderness, pedal edema, joint swelling, calf tenderness Back exam: Present: normal inspection Neurological exam: Present: alert, oriented X3, CN II-XII intact. Absent: motor sensory deficit Psychiatric exam: Present: normal affect, normal mood Skin exam: Present: warm, dry, intact, normal color. Absent: rash, cyanosis, diaphoretic Course Vital Signs 12/19/21 03:02 Temperature 98.2 F Pulse Rate 63 Respiratory 18 Rate Blood Pressure 144/78 O2 Sat by Pulse 98 Oximetry Medical Decision Making - Medical Decision Making Patient has since Mikayla Lovely tooth #4. No definitive infectious process. Patient treated with pain medication, anti-inflammatory medication. I will cover with antibiotics in the form of Pen-Vee K. Patient told to call the dentist in the morning. Patient concurs with this treatment plan. None appear to be ill or toxic. All questions answered. Patient was told to return to the ER for any signs or symptoms worsen. Told to return immediately if any other problems arise. All questions answered. Treatment plan discussed. Patient in agreement Every effort has been made to ensure accuracy of this dictation. However, due to the limitations of electronic medical records and dictation devices, errors in charting still occur. Safety Deposit Clerk Dr. Trevino Disposition Clinical Impression: Dental caries, Toothache Disposition: HOME SELF-CARE Condition: Stable Instructions (If sedation given, give patient instructions): Toothache (ED) Additional Instructions: No headache, no fever or chills, no changes in vision or hearing, no sore throat or difficulty with speech, no neck pain, no chest pain or shortness of breath, no abdominal pain, no nausea or vomiting, no changes in urination or bowel movements, no numbness or tingling, no extremity pain, no skin rashes or lesions. Past medical, surgical, social, and family history reviewed. Prescriptions: Ibuprofen [Motrin] 600 mg PO Q8HR PRN #30 tab PRN Reason: Pain Penicillin V Potassium [Pen Vee K] 500 mg PO QID #28 tablet Acetaminophen Tab [Tylenol Tab] 500 mg PO Q6H PRN #24 tablet PRN Reason: Pain Is patient prescribed a controlled substance at d/c from ED?: No Referrals: Candido Carmona MD [Primary Care Provider] - 12/22/21 Time of Disposition: 03:15
== END 2021-12-19 03:35 | disposition home or self-care (01) ==
LOC: EC 03:00
DX: K02.9 Dental caries, unspecified (principal); Z87.891 Personal history of nicotine dependence
CPT/HCPCS: 99282

== ENCOUNTER 2022-01-24 23:48 | Emergency (ER) | payer OTHER ==
[2022-01-25 00:36] VITALS: BP 133/72; TEMP 97.8
[2022-01-25] MEDS ORDERED: AMOXIC-POT CLAV 875-125MG 1 EACH TAB PO STA (02:17)
[2022-01-25] MEDS ORDERED: ONDANSETRON 4 MG ODT STARTER PACK 2 TAB BTL PO STA (02:17)
[2022-01-25] MEDS ORDERED: Acetaminophen-Codeine 300-30mg TAB PO STA (02:17)
[2022-01-25] MEDS ORDERED: IBUPROFEN 800 MG TAB PO STA (02:17)
[2022-01-25] MEDS ORDERED: ACET/COD 300 MG/30 MG STARTER PACK 6 TAB BTL PO STA (02:17)
[2022-01-25] MEDS ORDERED: IBUPROFEN 600 MG STARTER PACK 4 TAB BTL PO STA (02:17)
--- NOTE | 2022-01-25 02:26 | ED ---
ENT HPI - General Chief complaint: Dental/Oral Stated complaint: Dental Pain Time Seen by Provider: 01/25/22 01:57 Source: patient, RN notes reviewed, old records reviewed Mode of arrival: ambulatory Limitations: no limitations - History of Present Illness Initial comments: This is a 21-year-old female to the emergency department for evaluation of right rear. Tenderness is worse, states that she has abdominal swelling. Does have history of cold teeth in the past as well as cavities. Patient has no fevers no swelling no other complaints MD complaint: tooth pain -: days(s) Location: tooth # Severity: severe Severity scale (1-10): 8 Quality: stabbing Consistency: constant Improves with: none Worsens with: none Context- Dental: history of dental caries, poor dental care Associated Symptoms: other (0) - Related Data Previous Rx's Medication Instructions Recorded Ibuprofen [Motrin] 600 mg PO Q6HR PRN #60 tab 08/02/21 Acetaminophen Tab [Tylenol Tab] 500 mg PO Q6H PRN #24 tablet 12/19/21 Ibuprofen [Motrin] 600 mg PO Q8HR PRN #30 tab 12/19/21 Penicillin V Potassium [Pen Vee K] 500 mg PO QID #28 tablet 12/19/21 Allergies Allergy/AdvReac Type Severity Reaction Status Date / Time No Known Allergies Allergy Verified 01/25/22 00:31 Review of Systems ROS Statement: Those systems with pertinent positive or pertinent negative responses have been documented in the HPI. ROS Other: All systems not noted in ROS Statement are negative. Past Medical History Past Medical History: No Reported History Additional Past Medical History / Comment(s): GHTN/PIH History of Any Multi-Drug Resistant Organisms: None Reported Past Surgical History: No Surgical Hx Reported Additional Past Surgical History / Comment(s): oral surgery, no anesth complications Past Anesthesia/Blood Transfusion Reactions: No Reported Reaction Past Psychological History: No Psychological Hx Reported Smoking Status: Former smoker Past Alcohol Use History: None Reported Past Drug Use History: None Reported - Past Family History Mother History Unknown: Yes Family Medical History: No Reported History General Exam Limitations: no limitations General appearance: alert, in no apparent distress Head exam: Present: atraumatic, normocephalic, normal inspection Eye exam: Present: normal appearance, PERRL, EOMI. Absent: scleral icterus, conjunctival injection, periorbital swelling ENT exam: Present: normal exam, mucous membranes moist, other (Right rear tooth tenderness lower) Neck exam: Present: normal inspection. Absent: tenderness, meningismus, lymphadenopathy Respiratory exam: Present: normal lung sounds bilaterally. Absent: respiratory distress, wheezes, rales, rhonchi, stridor Cardiovascular Exam: Present: regular rate, normal rhythm, normal heart sounds. Absent: systolic murmur, diastolic murmur, rubs, gallop, clicks GI/Abdominal exam: Present: soft, normal bowel sounds. Absent: distended, tenderness, guarding, rebound, rigid Extremities exam: Present: normal inspection, full ROM, normal capillary refill. Absent: tenderness, pedal edema, joint swelling, calf tenderness Back exam: Present: normal inspection Neurological exam: Present: alert, oriented X3, CN II-XII intact Psychiatric exam: Present: normal affect, normal mood Skin exam: Present: warm, dry, intact, normal color. Absent: rash Course Vital Signs 01/25/22 00:31 Temperature 97.8 F Pulse Rate 83 Respiratory 16 Rate Blood Pressure 133/72 O2 Sat by Pulse 98 Oximetry - Reevaluation(s) Reevaluation #1: 01/25/22 02:20 Medical record is reviewed Reevaluation #2: 01/25/22 02:21 Patient's pain is controlled Reevaluation #3: 01/25/22 02:21 Patient informed results and questions answered Medical Decision Making - Medical Decision Making 21 female presented with dental pain. Patient has right rear dental abscess and dental tenderness. Patient be placed on antibiotics and pain control can be discharged home Disposition Clinical Impression: Toothache, Dental abscess, Dental caries Disposition: HOME SELF-CARE Condition: Good Instructions (If sedation given, give patient instructions): Dental Abscess (ED), Toothache (ED) Is patient prescribed a controlled substance at d/c from ED?: No Referrals: Candido Carmona MD [Primary Care Provider] - 1-2 days Time of Disposition: 02:25
[2022-01-25 03:07] VITALS: PULSE 76; RESP 18
== END 2022-01-25 03:07 | disposition home or self-care (01) ==
LOC: EC 23:48
DX: K04.7 Periapical abscess without sinus (principal); K02.9 Dental caries, unspecified
CPT/HCPCS: 99282; S0119